=== PATIENT | female | born 1955 | race Caucasian/White ===

== ENCOUNTER 2016-10-03 13:22 | Emergency (ER) | payer BC ==
[2016-10-03 13:47] VITALS: BP 116/77
[2016-10-03] MEDS ORDERED: Albuterol 2.5 MG/3 ML NEB.SOL* (0.083%) INH ONE (14:08)
[2016-10-03] MEDS ORDERED: predniSONE TAB* 20 MG PO ONE ×2 (14:08→15:20)
[2016-10-03] MEDS ORDERED: Ipratropium 0.5MG/2.5ML NEB* 0.5 MG/2.5 ML NEB.SOLN INH ONE (14:08)
[2016-10-03] MEDS ORDERED: Amoxicillin/Clavulanate TAB* 875 MG PO ONE (15:21)
--- NOTE | 2016-10-06 16:50 | UC ---
Progress - Progress Note Progress Note: Pt called at 1620 on 10/06/16, requesting a different antibiotic because Augmentin is giving her diarrhea. Chart reviewed (prelim scribe document), pt was treated for sinusitis and bronchitis, based on DC instructions given. No antibiotic allergies. Name and were verified by staff taking the call (SAMEER) . Phone number of pt [phone]. Please advise pt to DC Augmentin, and start azithromycin 250m tabs now and one po qd x 4 days more. Return to urgent care if any new or worsening symptoms. Pt needs [place] [facility] [place] get established with a PCP. Rx is sent to [facility].
--- NOTE | 2016-10-12 15:33 | UC ---
Dyana Carcamo SooYoung, scribed for Bailey Huff DO on 10/03/16 at 1350 . Respiratory Complaint HPI - HPI Summary HPI Summary: A 61 y/o F presents to [facility] [place] with c/o chest congestion ongoing for past week. Associated sx: productive cough, rhinorrhea, sinus congestion, sore throat, dyspnea, diarrhea, body aches, chills. Pt says she is coughing so hard it's causing her to lose control of her bowel. Denies ear pain, n/v, CP. Former smoker. - History of Current Complaint Stated Complaint: CONGESTION Hx Obtained From: Patient Onset/Duration: Lasting Days, Still Present Timing: Constant Severity Initially: Moderate Severity Currently: Severe Pain Intensity: 8 Pain Scale Used: 0-10 Numeric Character: Cough: Productive Aggravating Factors: Deep Breaths Associated Signs And Symptoms: Positive: Dyspnea, Chills, Nasal Congestion, Sinus Discomfort - Allergies/Home Medications Allergies/Adverse Reactions: Allergies Allergy/AdvReac Type Severity Reaction Status Date / Time Hydrocodone [From Lortab] Allergy Itching Verified 10/03/16 13:47 Oxycodone [From Percocet] Allergy SEVERE Verified 10/03/16 13:47 ITCHING PMH/Surg Hx/FS Hx/Imm Hx Previously Healthy: Yes Endocrine History Of: Denies: Diabetes, Thyroid Disease Cardiovascular History Of: Denies: Cardiac Disorders, Hypertension Respiratory History Of: Denies: COPD, Asthma GI/ History Of: Denies: Ulcer Cancer History Of: Denies: Breast Cancer - Surgical History Surgical History: Yes Surgery Procedure, Year, and Place: cervical fusion x2 ; breast reduction; bladder surgery x2 for incontinence Gastric sleeve surgery 04/2016 - Family History Known Family History: Positive: Hypertension, Diabetes - Social History Occupation: Employed Full-time Lives: With Family Alcohol Use: None Substance Use Type: None Smoking Status (MU): Former Smoker Type: Cigarettes Amount Used/How Often: 1/2 ppd Have You Smoked in the Last Year: Yes When Did the Patient Quit Smoking/Using Tobacco: 09/2014 - Immunization History Most Recent Influenza Vaccination: 2 weeks ago (02/17/14) Most Recent Tetanus Shot: UNKNOWN Most Recent Pneumonia Vaccination: 2014 Review of Systems Constitutional: Chills Skin: Negative Eyes: Negative ENT: Sore Throat, Nasal Discharge, Other - POS: sinus and chest congestion Respiratory: Cough, Other - pos; dyspnea Cardiovascular: Negative Gastrointestinal: Diarrhea Genitourinary: Negative Motor: Negative Neurovascular: Negative Musculoskeletal: Other: - pos: generalized body aches Neurological: Negative Psychological: Negative All Other Systems Reviewed And Are Negative: Yes Physical Exam Triage Information Reviewed: Yes Appearance: Well-Appearing, No Pain Distress, Well-Nourished Vital Signs: Initial Vital Signs Temp 99.6 F 10/03/16 13:40 Pulse 67 10/03/16 13:40 Resp 18 10/03/16 13:40 BP 116/77 10/03/16 13:40 Pulse Ox 100 10/03/16 13:40 Vital Signs Reviewed: Yes Eyes: Positive: Conjunctiva Clear. Negative: Discharge ENT: Positive: Hearing grossly normal. Negative: Muffled/hoarse voice Neck exam: Normal Neck: Positive: Supple Respiratory: Positive: No accessory muscle use, Wheezing Cardiovascular: Positive: RRR, No Murmur Musculoskeletal Exam: Normal Neurological: Positive: Alert, Muscle Tone Normal Psychological Exam: Normal Psychological: Positive: Age Appropriate Behavior Skin Exam: Normal, Other - pos: warm, dry, nml color UC Diagnostic Evaluation - Laboratory O2 Sat by Pulse Oximetry: 100 Respiratory Course/Dx - Course Course Of Treatment: Normal BP reading and no follow-up instructions required. - Differential Dx/Diagnosis Differential Diagnosis/HQI/PQRI: Bronchitis, Lower Resp Infection, Sinusitis Provider Diagnoses: sinusitis, bronchitis Discharge - Discharge Plan Condition: Stable Disposition: HOME Prescriptions: Albuterol HFA INHALER* [Ventolin HFA Inhaler*] 2 puff INH Q4H PRN #1 mdi PRN Reason: Sob/Wheezing Amoxicillin/Clavulanate TAB* [Augmentin TAB 875*] 875 mg PO BID #20 tab Azithromycin TAB* [Zithromax TAB (Z-BLAIR) 250 mg #6 tabs] 2 tab PO .TODAY, THEN 1 DAILY #1 blair guaiFENesin ER TAB [Mucinex*] 600 mg PO BID PRN #1 box PRN Reason: Cough predniSONE TAB* [Deltasone TAB*] 40 mg PO DAILY #8 tab Patient Education Materials: Sinusitis (ED), Acute Bronchitis (ED) Referrals: No Primary Care Phys,NOPCP [Medical Doctor] - [facility] REFERRAL [Outside] Additional Instructions: TRY USING THE NETTI POT IN THE MORNINGS DISCUSSED. YOU MUST ALWAYS USE CLEAN WATER. REMEMBER, POSTURE IS AN IMPORTANT FACTOR IN SINUS DRAINAGE. MOVE YOUR NECK, BREATHE. CORTICOSTEROID MEDICATION: You have been given a medicine of the cortisone class. This medication is used to control inflammation or allergy. It is usually only given for a short period of time, until the acute process subsides. There are usually no side effects from short-term use of cortisone-like medications. Some persons feel an increased sense of well-being and are not sleepy at bedtime. Long-term use of cortisone medications is best avoided, unless required for a severe condition. If your condition does not remit, or relapses after the course of corticosteroid medication, you should consult your physician. Contact the physician if you develop lightheadedness, black or tarry stools , swelling of the legs, or significant rapid change in weight. INHALED BRONCHODILATORS: You have received a prescription for an inhaled bronchodilator -- a medication which stimulates the airways in the lung to dilate. This improves the flow of air in asthma, bronchitis, and emphysema. These medicines have some similarity to adrenaline, and can cause similar side effects: shakiness, racing heart, and a sense of nervousness. These side effects decrease with time. Contact your doctor if these side effects are severe. Do not over-use the medicine. Too-frequent use of the inhaler may make it ineffective. Call your doctor if the inhaler is not controlling your symptoms at the prescribed doses. EXPECTORANT MEDICATION: An expectorant medicine has been prescribed. This type of drug makes mucous thinner, helping the sinuses, nose, and bronchial tubes to remain free of pus and mucous. Expectorants make a cough less severe and more comfortable, and help infected sinuses drain. In general, antihistamines defeat the purpose of the expectorant by making mucous thicker. They should be avoided unless specifically recommended by your physician. AUGMENTIN: Augmentin is a mixture of amoxicillin and clavulanate. Amoxicillin is a member of the penicillin family. It covers the germs likely to cause ear, bronchial, and urinary infections better than plain penicillin. The addition of clavulanate allows it to cover staph infections of the skin, as well as resistant cases of ear and sinus infections. Your physician has chosen Augmentin for you because of the special nature of your situation. Augmentin is best taken with meals. Nausea after taking the medication is rare, but can occur. Diarrhea can occur, particularly in small children. Vaginal yeast infections, and oral thrush in infants are also common. Contact your physician if these problems occur. Allergy to penicillins is common. If you have had an allergic reaction to any drug of the penicillin family, you should never take any other penicillin. Notify your doctor at once if you develop hives, shortness of breath, swelling, or faintness. ANY TIME YOU TAKE AN ANTIBIOTIC, IT IS IMPORTANT TO REPLENISH THE BODY'S BALANCE OF "GOOD" BACTERIA BY EATING HIGH QUALITY CULTURED FOOD SUCH YOGURT, SAURKRAUT OR ANGIE CHI AND/OR TAKING A PROBIOTIC SUPPLEMENT. Return to Urgent Care if you have any new or worsening symptoms. FOLLOW-UP CARE: You should establish with a private physician for follow-up care. If you are unable to get a timely appointment, or if you are worsening, call us or return for re-evaluation. An additional resource available to assist in finding the appropriate physician for your health care needs is the Physician Referral Center. You may contact them by calling [phone]. The documentation as recorded by the Dyana andre SooYoung accurately reflects the service I personally performed and the decisions made by , Bailey Huff DO.
== END 2016-10-03 15:46 | disposition home or self-care (01) ==
LOC: UCEAST 13:22
DX: J32.9 Chronic sinusitis, unspecified (principal); J40 Bronchitis, not specified as acute or chronic; Z88.5 Allergy status to narcotic agent; Z98.84 Bariatric surgery status; Z87.891 Personal history of nicotine dependence
CPT/HCPCS: 99213; A9270-GY; G0463; J7512; J7644

== ENCOUNTER 2020-04-05 08:59 | Inpatient (IN) ==
[~2020-04-05 08:59] MED LIST: Buffered Lidocaine 1% SYRIN 1 ml INTRADERM ONE; Lactated Ringers 1000 ml BAG 1,000 ML IV SCH
[2020-04-05] MEDS ORDERED: fentaNYL 250 mcg/5 ml 50 MCG/ML 5 ml VIAL (250 MCG) ONE (09:07)
[2020-04-05] MEDS ORDERED: Midazolam 2 mg/2 ml VIAL 1 mg/ml 2 ml VIAL (2 mg) ONE ×2 (09:08→09:09)
[2020-04-05] MEDS ORDERED: Rocuronium 50 mg VIAL 10 mg/ml 5 ml VIAL (50 mg) ONE (09:08)
[2020-04-05] MEDS ORDERED: Propofol 10 MG/ML 20 ML BTL ONE (09:11)
[2020-04-05] MEDS ORDERED: Dexamethasone IV 4 MG/ML VIAL 1 ml VIAL ONE (09:11)
[2020-04-05] MEDS ORDERED: Ondansetron 4 mg VIAL 2 MG/ML 2 ml VIAL ONE (09:11)
[2020-04-05] MEDS ORDERED: ceFAZolin 2 GM PREMIX 2 GM/50 ML BAG ONE (09:17)
[2020-04-05] MEDS ORDERED: Buffered Lidocaine 1% SYRIN 1 ml INTRADERM ONE (09:17)
[2020-04-05] MEDS ORDERED: Remifentanil 2 MG VIAL ONE ×2 (10:00→16:41)
[2020-04-05] MEDS ORDERED: Propofol 10 mg/ml 100 ML BTL 400 ML ONE (12:27)
[2020-04-05] MEDS ORDERED: Bupivacaine 0.25% SDV PF 10 ML VIAL INJ ONE (12:40)
[2020-04-05] MEDS ORDERED: Artificial Tear OPHTH.OINT 3.5 GM ONE (12:40)
[2020-04-05] MEDS ORDERED: Lidocaine 1% w EPI 1:100,000 MDV 20 ML VIAL ONE (12:40)
[2020-04-05] MEDS ORDERED: HYDROmorphone 1 MG/1 ML SYRINGE ONE ×2 (14:20→17:17)
[2020-04-05] MEDS ORDERED: Sugammadex 500 MG/5 ML 5 ml VIAL IV PUSH ONE (15:06)
[2020-04-05] MEDS ORDERED: ceFAZolin VIAL VIAL ONE (17:58)
[2020-04-05] MEDS ORDERED: Acetaminophen IV 1 GM/100ML 100 ML ONE (18:45)
[2020-04-05] MEDS ORDERED: Ondansetron 4 mg VIAL 2 MG/ML 2 ml VIAL IV PRN ×2 (19:19→19:54)
[2020-04-05] MEDS ORDERED: Magnesium Hydroxide LIQ 30 ML UDC PO PRN (19:19)
[2020-04-05] MEDS ORDERED: Fluticasone NASAL SPRAY 50MCG 16 gm SPRAY BTL BOTH NARES PRN (19:28)
[2020-04-05] MEDS ORDERED: Naloxone 0.4 mg VIAL 0.4 mg/ml 1 ml VIAL IV PRN (19:54)
[2020-04-05] MEDS ORDERED: HYDROmorphone 1 MG/1 ML SYRINGE IV PRN (19:54)
[2020-04-05] MEDS ORDERED: fentaNYL 100 mcg/2 ml 50 MCG/ML VIAL ONE (20:09)
[2020-04-05] MEDS: fentaNYL 100 mcg/2 ml 50 MCG/ML VIAL IV PRN ×2 (20:11→20:16)
[2020-04-05] MEDS ORDERED: Prochlorperazine 5 mg/ml 2 ml VIAL (10 mg) IV PRN (22:01)
[2020-04-05] MEDS: Lactated Ringers 1000 ml BAG 1,000 ML IV SCH (22:11)
[2020-04-05] MEDS: CEVIMELINE 30 MG PO SCH (22:31)
[2020-04-05] MEDS: Epinastine 0.05% OPHTH(NF) 5 ML BTL BOTH EYES SCH (22:32)
[2020-04-06] MEDS ORDERED: diPHENhydraMINE 25 mg TAB PO PRN (08:21)
[2020-04-06] MEDS: Multivitamins/Minerals TAB PO SCH ×2 (08:33→09:51)
[2020-04-06] MEDS: Calcium Carb 1250 mg TAB (500 mg elemental calcium) PO SCH ×2 (08:34→09:51)
[2020-04-06] MEDS ORDERED: methylPREDNISolone 125 mg 2 ML VIAL IV ONE (08:37)
[2020-04-06] MEDS ORDERED: diPHENhydraMINE IV 50 MG/ML 1 ml VIAL (BENADRYL) ONE (08:42)
[2020-04-06] MEDS ORDERED: methylPREDNISolone 125 mg 2 ML VIAL ONE (08:42)
[2020-04-06] MEDS: diPHENhydraMINE IV 50 MG/ML 1 ml VIAL (BENADRYL) IV PRN ×2 (08:44→21:04)
[2020-04-06] MEDS: Epinastine 0.05% OPHTH(NF) 5 ML BTL BOTH EYES SCH ×2 (08:55→20:49)
[2020-04-06] MEDS: CEVIMELINE 30 MG PO SCH ×2 (08:55→20:49)
[2020-04-06] MEDS ORDERED: Famotidine IV 10 MG/ML 2 ml VIAL (20 mg) IV SLOW PU SCH (09:00)
[2020-04-06] MEDS: Lactated Ringers 1000 ml BAG 1,000 ML IV SCH (10:16)
[2020-04-06] MEDS ORDERED: Morphine 2 MG/ML SYRINGE IV ONE (11:00)
[2020-04-07 07:37] VITALS: BP 110/55
[2020-04-07] MEDS ORDERED: Cholecalciferol (VIT D3) 1,000 unit TAB PO SCH (09:00)
[2020-04-07] MEDS: Calcium Carb 1250 mg TAB (500 mg elemental calcium) PO SCH (09:04)
[2020-04-07] MEDS: Multivitamins/Minerals TAB PO SCH (09:05)
[2020-04-07] MEDS: CEVIMELINE 30 MG PO SCH (09:06)
[2020-04-07] MEDS: Epinastine 0.05% OPHTH(NF) 5 ML BTL BOTH EYES SCH (09:06)
== END 2020-04-07 13:00 | disposition home health service (06) | DRG 460 ==
LOC: AA 08:59 → SSU 21:48 → ICU 04-06 09:24 → SSU 04-06 14:49
PROVIDERS: ADMIT Neurological Surgery; ATTEND Neurological Surgery

== ENCOUNTER 2020-11-20 11:14 | Inpatient (IN) ==
[2020-11-20] MEDS ORDERED: Buffered Lidocaine 1% SYRIN 1 ml INTRADERM ONE (11:49)
[2020-11-20] MEDS ORDERED: Heparin 5000 UNITS/ML 1 mL VIAL ONE (11:49)
[2020-11-20] MEDS ORDERED: Propofol 10 MG/ML 20 ML BTL ONE (12:06)
[2020-11-20] MEDS ORDERED: Lidocaine 2% PF 5 ML VIAL ONE (12:06)
[2020-11-20] MEDS ORDERED: fentaNYL 250 mcg/5 ml 50 MCG/ML 5 ml VIAL (250 MCG) ONE (12:06)
[2020-11-20] MEDS ORDERED: Midazolam 2 mg/2 ml VIAL 1 mg/ml 2 ml VIAL (2 mg) ONE (12:06)
[2020-11-20] MEDS ORDERED: Ertapenem 1 GM in NS 0.9% 50 ML IVPB ONE (12:15)
[2020-11-20] MEDS ORDERED: Sugammadex 500 MG/5 ML 5 ml VIAL IV PUSH ONE (12:28)
[2020-11-20] MEDS ORDERED: Bupivacaine 0.25% EPI 200,000 30 ML SDV ONE ×2 (13:07→16:35)
[2020-11-20] MEDS ORDERED: Rocuronium 50 mg VIAL 10 mg/ml 5 ml VIAL (50 mg) ONE ×2 (13:44→14:38)
[2020-11-20] MEDS ORDERED: HYDROmorphone 1 MG/1 ML SYRINGE ONE (14:40)
[2020-11-20] MEDS ORDERED: Ondansetron 4 mg VIAL 2 MG/ML 2 ml VIAL ONE (14:45)
[2020-11-20] MEDS ORDERED: Dexamethasone IV 4 MG/ML VIAL 1 ml VIAL ONE (14:45)
[2020-11-20] MEDS ORDERED: fentaNYL 100 mcg/2 ml 50 MCG/ML VIAL ONE (16:30)
[2020-11-20] MEDS ORDERED: fentaNYL 100 mcg/2 ml 50 MCG/ML VIAL IV PRN (17:04)
[2020-11-20] MEDS ORDERED: Morphine 4 MG/ML VIAL (1 ml) IV PRN (17:04)
[2020-11-20] MEDS ORDERED: Prochlorperazine 5 mg/ml 2 ml VIAL (10 mg) IV PRN (17:04)
[2020-11-20] MEDS ORDERED: Ondansetron 4 mg VIAL 2 MG/ML 2 ml VIAL IV PRN (17:04)
[2020-11-20] MEDS: Lactated Ringers 1000 ml BAG 1,000 ML IV SCH (18:46)
[2020-11-20] MEDS: HYDROmorphone 1 MG/1 ML SYRINGE IV SLOW PU PRN (20:27)
[2020-11-20] MEDS: Dextran 70/Hypromellose Tears Eye Drops 15 ml BTL (for Artificials Tears) BOTH EYES SCH (21:39)
[2020-11-21] MEDS: HYDROmorphone 1 MG/1 ML SYRINGE IV SLOW PU PRN (02:03)
[2020-11-21] MEDS: Lactated Ringers 1000 ml BAG 1,000 ML IV SCH ×3 (03:42→23:56)
[2020-11-21 05:19] LABS: ABS Lymphocytes 0.9 10^3/ul (1.0-4.8); ABS Monocytes 0.4 10^3/ul (0-0.8); ABS Neutrophils 5.1 10^3/ul (1.5-7.7); Eosinophil % 0.3 %; Hematocrit 28 % (35-47); Hemoglobin 9.7 g/dL (12.0-16.0); Lymphocyte % 13.6 %; Mean Corpuscular HGB Conc 35 g/dL (31-36); Mean Corpuscular Hemoglobin 30 pg (27-31); Mean Corpuscular Volume 87 fL (80-97); Mean Platelet Volume 7.3 fL (7.4-10.4); Nucleated Red Blood Cells % 0.1; Platelet Count 194 10^3/uL (150-450); Red Blood Count 3.22 10^6 /uL (3.70-4.87); Red Cell Distribution Width 14 % (10-15); White Blood Count 6.4 10^3/uL (3.5-10.8)
[2020-11-21 05:36] LABS: Calcium 8.3 mg/dL (8.6-10.3); EGFR African American 118.4 (>60); EGFR Non-African American 97.8 (>60); Potassium 3.9 mmol/L (3.5-5.0)
[2020-11-21] MEDS ORDERED: Fluticasone NASAL SPRAY 50MCG 16 gm SPRAY BTL BOTH NARES PRN (07:55)
[2020-11-21] MEDS: Cholecalciferol (VIT D3) 1,000 unit TAB PO SCH (08:13)
[2020-11-21] MEDS: HYDROmorphone 0.5 MG/0.5 ML SYRINGE IV SLOW PU PRN ×3 (08:15→20:35)
[2020-11-21] MEDS: Dextran 70/Hypromellose Tears Eye Drops 15 ml BTL (for Artificials Tears) BOTH EYES SCH ×4 (08:17→20:40)
[2020-11-21] MEDS ORDERED: CALCIUM GLUCONATE 1GM/50ML NS 1 GM/50 ML BAG IV ONE (08:42)
[2020-11-21] MEDS: EPINASTINE 0.05% BOTH EYES SCH ×2 (10:22→20:35)
[2020-11-22 07:36] VITALS: BP 128/60
[2020-11-22] MEDS: Lactated Ringers 1000 ml BAG 1,000 ML IV SCH (08:17)
[2020-11-22] MEDS: Cholecalciferol (VIT D3) 1,000 unit TAB PO SCH (08:18)
[2020-11-22] MEDS: EPINASTINE 0.05% BOTH EYES SCH (08:18)
[2020-11-22] MEDS: Dextran 70/Hypromellose Tears Eye Drops 15 ml BTL (for Artificials Tears) BOTH EYES SCH (08:26)
== END 2020-11-22 12:00 | disposition home or self-care (01) | DRG 331 ==
LOC: AA 11:14 → SSU 19:07
PROVIDERS: ADMIT Surgery; ATTEND Surgery